=== PATIENT | male | born 1990 | race Caucasian/White ===

== ENCOUNTER → 2016-07-16 | Day surgery (SDC) | payer OTHER ==
[2016-07-04 08:09] VITALS: BMI 22.0
[~2016-07-16] VITALS: Ht 188 cm; Wt 79.5 kg
[~2016-07-16] MED LIST: CETI10TA84 PO; FENTANYL CITR 50 MCG/1 ML 5ML VIAL ONE; MIDAZOLAM HCL 5 MG/ML 1 ML VIAL ONE; PSYL48.59 PO; SODIUM CHLORIDE 0.9% 500ML 500 ML IV ONE
[2016-07-16 14:58] VITALS: Ht 188 cm; Wt 79.5 kg
--- NOTE | 2016-07-16 15:12 | Endo History and Physical ---
History & Physical Date of Service: Jul 16, 2016. Chief Complaint: RECTAL BLEEDING Referring Physician: [facility] History of Present Illness 25 yo CM who presents for colonoscopy secondary to rectal bleeding. Past Surgical History Hx Cardiac Surgery: No Hx Internal Defibrillator: No Hx Pacemaker: No Hx Abdominal Surgery: No Hx of Implantable Prosthesis: No Hx Post-Op Nausea and Vomiting: No Hx Cancer Surgery: No Hx Thoracic Surgery: No Hx Orthopedic: No Hx Urinary Tract Surgery: No Family History Polyp Social History Smoking Status: Never Smoker Hx Substance Use: No Hx Alcohol Use: Yes (OCCASIONAL) Allergies Coded Allergies: Codeine (Verified Allergy, Unknown, UNKNOWN REACTION - HAPPENED A BABY , 07/16/16) Current Medications Reported Home Medications Medications Dose Route/Sig Max Daily Dose Days Date Category Metamucil (Psyllium) 48.57 % Pow 1 Tbs PO BID 07/04/16 Reported Zyrtec (Cetirizine HCl) 10 Mg Tab 10 Mg PO QAM 07/04/16 Reported Vital Signs Weight (Kilograms): 79.55 Height (Feet): 6 Height (Inches): 2 Date Time Temp Pulse Resp B/P Pulse Ox O2 Delivery O2 Flow Rate FiO2 07/16/16 15:04 57 18 141/61 98 Room Air 07/16/16 15:03 36.8 57 18 141/61 98 Room Air Physical Exam General Appearance: WD/WN, no apparent distress Respiratory/Chest: Auscultation: breath sounds normal Cardiovascular: Heart Auscultation: RRR Abdomen: Bowel Sounds: normal Inspection & Palpation: soft, non-distended, no tenderness, guarding & rebound Assessment and Plan Assessment: 25 yo CM who presents for colonoscopy secondary to rectal bleeding. Plan: Proceed with colonoscopy.
--- NOTE | 2016-07-16 15:52 | GI REPORT ---
Procedure Date: 07/16/2016 3:17 PM Procedure: Colonoscopy Indications: Rectal bleeding Medicines: Monitored Anesthesia Care Complications: No immediate complications. Estimated Blood Loss: Estimated blood loss: none. Procedure: Pre-Anesthesia Assessment: - Prior to the procedure, a History and Physical was performed, and patient medications and allergies were reviewed. The patient's tolerance of previous anesthesia was also reviewed. The risks and benefits of the procedure and the sedation options and risks were discussed with the patient. All questions were answered, and informed consent was obtained. Prior Anticoagulants: The patient has taken no previous anticoagulant or antiplatelet agents. ASA Grade Assessment: I - A normal, healthy patient. After reviewing the risks and benefits, the patient was deemed in satisfactory condition to undergo the procedure. After I obtained informed consent, the scope was passed under direct vision. Throughout the procedure, the patient's blood pressure, pulse, and oxygen saturations were monitored continuously. The scope was introduced through the anus and advanced to the terminal ileum. The colonoscopy was performed without difficulty. The patient tolerated the procedure well. The quality of the bowel preparation was good. The terminal ileum, ileocecal valve, appendiceal orifice, and rectum were photographed. Findings: The colon (entire examined portion) appeared normal. Multiple random biopsies were obtained with cold forceps for histology in the entire colon. Non-bleeding internal hemorrhoids were found during retroflexion. The hemorrhoids were small. Impression: - The entire examined colon is normal. - Non-bleeding internal hemorrhoids. - Multiple random biopsies were obtained in the entire colon. Recommendation: - Resume previous diet. - Continue present medications. - Repeat colonoscopy for surveillance based on pathology results. - Return to primary care physician as previously scheduled. Satish Osorio DO 07/16/2016 3:51:32 PM This report has been signed electronically. Note Initiated On: 07/16/2016 3:17 PM I attest to the content of the Intraoperative Record and orders documented therein, exceptions below
[2016-07-16 16:02] VITALS: BP 133/74; PULSE 52; O2SAT 100
--- NOTE | 2016-07-16 16:07 | Discharge Instructions ---
Endoscopy Patient Instructions Date / Procedure(s) Performed Jul 16, 2016. Colonoscopy Allergy Information Coded Allergies: Codeine (Verified Allergy, Unknown, UNKNOWN REACTION - HAPPENED A BABY , 07/16/16) Discharge Date / Findings Jul 16, 2016. Random colon biopsies Internal hemorrhoids Medication Instructions OK to resume all medications today as prescribed Reported Home Medications Medications Dose Route/Sig Max Daily Dose Days Date Category Metamucil (Psyllium) 48.57 % Pow 1 Tbs PO BID 07/04/16 Reported Zyrtec (Cetirizine HCl) 10 Mg Tab 10 Mg PO QAM 07/04/16 Reported Provider Instructions Activity Restrictions - No exercising or heavy lifting for 24 hours. - Do not drink alcohol the day of the procedure. - Do not drive a car or operate machinery until the day after the procedure. - Do not make any important decisions or sign important papers in 24 hours after the procedure. Following Day: - Return to full activity which may include returning to work/school. Diet Start your diet with liquids and light foods (jello, soup, juice, toast). Then eat your usual diet if not nauseated. Treatment For Common After Affects For mild abdominal pain, bloating, or excessive gas: - Rest - Eat lightly - Lie on right side Follow-Up Information Follow-up with [facility] as scheduled Anesthesia Information What You Should Know You have had a procedure that required some medicine to reduce anxiety and discomfort. This treatment is called moderate sedation. After receiving the treatment, you may be sleepy, but you will be able to breathe on your own. The effects of the treatment may last for several hours. Follow these instructions along with Activity/Diet recommendations noted above: * Do NOT do anything where dizziness or clumsiness would be dangerous. * Rest quietly at home today, then you can be up and about tomorrow. * Have a responsible person stay with you the rest of today. * You may have had an I.V. today. If so, you may take the dressing off later today. Recommendations Call your doctor if: * Trouble breathing * Continuous vomiting for more than 24 hours * Temperature above 101 degrees * Severe abdominal pain or bloating * Pain not relieved by pain medicine ordered * There is increased drainage or redness from any incision * A large amount of rectal bleeding greater than 2-3 tablespoons. (If you had a polyp/s removed or have hemorrhoids, a small amount of blood - from the rectum is to be expected.) * You have any unanswered questions or concerns. IN THE EVENT OF A SERIOUS EMERGENCY, GO TO THE NEAREST EMERGENCY ROOM Your discharge instructions were prepared by provider Satish Osorio. Patient Instructions Signature Page Taye Zhou Patient (or Guardian) Signature/Date: I have read and understand the instructions given to me by my caregivers. Caregiver/RN/Doctor Signature/Date: The above-named patient and/or guardian has received patient instructions on this date. + Original Patient Signature Page (only) stays with chart. Please make copy for patient.
== END | disposition home or self-care (01) ==
LOC: C.GI 14:36
PROVIDERS: ATTEND Internal Medicine
DX: K62.5 Hemorrhage of anus and rectum (principal); K64.8 Other hemorrhoids